=== PATIENT | male | born 1960 | race Caucasian/White ===

== ENCOUNTER 2021-11-16 22:04 | Emergency (ER) | payer OTHER, MEDICAID, SELFPAY ==
[2021-11-16 22:09] VITALS: BP 123/77; PULSE 117; RESP 22; TEMP 36.8; O2SAT 98
--- NOTE | 2021-11-16 22:40 | ED_ITS ---
HPI - Dental/Oral General Chief complaint: Dental/Oral Stated complaint: abcess tooth, anxiety Time Seen by Provider: 11/16/21 22:07 Source: patient Mode of arrival: Ambulatory History of Present Illness HPI Narrative: 61-year-old male daily smoker with history of anxiety and dental issues presents with a chief complaint of a dental fracture of 1 of his right upper molars a few days ago. In the aftermath he develops some pain and mild swelling of the right side of his face. He denies any systemic findings such as fever chills. He has no trouble swallowing. He has widespread poor dentition and multiple dental fractures and is in the process of trying to obtain dental follow-up. Related Data Previous Rx's Medication Instructions Recorded cephalexin 500 mg capsule 500 mg PO BID #20 cap 11/16/21 Allergies Allergy/AdvReac Type Severity Reaction Status Date / Time No Known Drug Allergies Allergy Unverified 07/17/21 13:48 Review of Systems Review of Systems Narrative: GENERAL: Denies chills, fatigue, malaise, fever, sweats. HEENT: See HPI RESPIRATORY: Denies dyspnea, cough, wheezing, hemoptysis, sputum. CARDIOVASCULAR: Denies chest pain, palpitations, orthopnea, edema, GASTROINTESTINAL: Denies nausea, vomiting, abdominal pain, diarrhea, constipation, melena. : Denies dysuria, frequency, incontinence, hematuria, urinary retention. MUSCULOSKELETAL: denies weakness, joint pain, or bony pain SKIN: Denies rash, skin lesions, or other NEUROLOGIC: Denies weakness, headache, numbness, change in speech, confusion, seizures, incoordination. PSYCHIATRIC: No concerning psychosocial issues. 12 point review of systems is negative except for those stated above Patient History Medical History Acne (~1977) Chicken pox (~1965) Cluster headaches (~1989) Tobacco abuse disorder Family History Mother Cancer Father No problems noted. Social History Smoking Status: Current every day smoker alcohol intake: former substance use type: marijuana Smoking Status: Current every day smoker alcohol intake frequency: a few times a month Exam Narrative Exam Narrative: GEN: AOx3 and in mild distress EYES: Pupils are equal, round, and reactive to light and accommodation. Extraoccular muscles are intact bilaterally. There is no subconjunctival hemorrhage or exudate. ENT: Minimal right-sided facial swelling without redness, induration or fluctuance, intraoral exam notes widespread poor dentition with multiple eroded teeth, no obvious intraoral abscess that would respond to I and D CHEST: Lungs are clear to auscultation bilaterally and free of wheezes, rales, or rhonchi. Heart rate is regular rhythm, there are no murmurs, clicks, rubs, or gallops. There is no chest wall tenderness. ABD: Abdomen is soft and nontender. There is no guarding or rebound. Bowel sounds are normal in all 4 quadrants. There is no mass or organomegaly. EXT: Full painless ROM of all extremities with no loss of sensation or strength. SKIN: Warm, pink, and dry. No erythema or rash Initial Vital Signs Initial Vital Signs: Vital Signs Temperature 98.2 F 11/16/21 22:09 Pulse Rate 117 H 11/16/21 22:09 Respiratory Rate 22 11/16/21 22:09 Blood Pressure 123/77 11/16/21 22:09 Pulse Oximetry 98 11/16/21 22:09 Course Orders Ordered: Discontinued Medications Cefazolin Sodium (Cephalexin 250 Mg Prepack) 1 bottle MISC SEEINSTR ONE Stop: 11/16/21 22:50 Last Admin: 11/16/21 22:59 Dose: 2 cap Documented by: STARLA Vital Signs Vital signs: Vital Signs - 8 hr 11/16/21 22:09 Temperature 98.2 F Pulse Rate 117 H Respiratory Rate 22 Blood Pressure 123/77 Pulse Oximetry 98 MDM - Dental/Oral MDM Narrative Medical decision making narrative: Patient has widespread poor dentition with a report of new dental fracture and right-sided facial swelling, the swelling is minimal, there is no difficulty swallowing and no airway compromise. Patient has no signs of sepsis and there is no indication for hospitalization. Return precautions given and questions answered to his apparent satisfaction Discharge Plan Departure Patient Disposition: Home Clinical Impression: Dental abscess, Fracture of tooth Instructions: Tooth Abscess, DI for Dental Pain Activity Restrictions/Additional Instructions: *You have been diagnosed with [dental caries with abscess] *What to do: *Please continue to take your regular medications as directed. [ ] New medication prescriptions sent to your pharmacy: [ ] [ x] New medication written as a paper prescription [ ] No new medications given *Please follow up with your primary care provider in 2-3 days, call for an appointment. Let them know you were seen in the Emergency Department and that we ask that you be seen in follow up. We will electronically transmit a record of today's note if your PCP is in our system *If you do not have a primary care provider please contact the [facility] Resource line at [phone]. They will ask some questions about your medical history and help get you set up with a doctor in the community. *Return to Emergency Department if you should have any new, worsening or concerning symptoms, such as [fever greater than 101 F, shaking chills, worsening pain, persistent vomiting or other bothersome symptoms] Prescriptions: New cephalexin 500 mg capsule 500 mg PO BID Qty: 20 0RF Referrals: Flaco Tse DMD [Physician] - Ish Mohan DO [Primary Care Provider] -
[2021-11-16] MEDS: cephALEXin 250 MG PREPACK 1 BOTTLE MISC (22:59)
== END 2021-11-16 23:06 | disposition home or self-care (01) ==
PROVIDERS: Emergency Provider Emergency Medicine; PCP Family Medicine
DX: S02.5XXA Fracture of tooth (traumatic), initial encounter for closed fracture (principal); X58.XXXA Exposure to other specified factors, initial encounter
CPT/HCPCS: 99281

== ENCOUNTER → 2021-12-31 09:28 | Outpatient (CLI) | payer OTHER, MEDICAID, SELFPAY ==
[2021-12-31 10:49] LABS: Add Manual Diff / Slide Review NO; Basophils Absolute Auto 100 /uL (0-100); Basophils Percent Auto 1.3 % (0-2); Eosinophils Absolute Auto 100 /uL (0-450); Eosinophils Percent Auto 1.1 % (2-4); Hematocrit 43.6 % (41-53); Hemoglobin 15.3 g/dL (13.5-17.5); Lymphocytes Absolute Auto 2000 /uL (1100-4500); Lymphocytes Percent Auto 20.2 % (25-40); Mean Corpuscular HGB Conc 35.2 % (30-36); Mean Corpuscular Hemoglobin 32.1 PG (26-34); Mean Corpuscular Volume 91.3 fL (80-100); Monocytes Absolute Auto 900 /uL (0-900); Monocytes Percent Auto 8.5 % (3-14); Neutrophils Absolute Auto 6900 /uL (1500-7000); Neutrophils Percent Auto 68.9 % (50-75); Platelet Count 308 X10^3/uL (150-400); Red Blood Cell Count 4.78 X10^6/uL (4.5-5.9); Red Cell Distribution Width 14.2 % (11.6-14.8)
[2021-12-31 11:21] LABS: Alanine Aminotransferase 18 IU/L (<50); Albumin 4.9 g/dL (3.5-5.0); Albumin Globulin Ratio 1.8 (1.0-2.8); Alkaline Phosphatase 69 U/L (38-126); Aspartate Aminotransferase 20 IU/L (17-59); BUN Creatinine Ratio 14.5 (6-22); Bilirubin Total 0.9 mg/dL (0.2-1.3); Blood Urea Nitrogen 12 mg/dL (9-20); Calcium 9.7 mg/dL (8.4-10.2); Carbon Dioxide 22 mmol/L (22-32); Chloride 104 mmol/L (98-107); Cholesterol 191 mg/dL (140-199); Estimated Glomerular Filt Rate > 60 mL/min (>60); Globulin 2.7 g/dL (1.7-4.1); Glucose 122 mg/dL (80-110); HDL Cholesterol 52 mg/dL (40-60); HEMOLYSIS < 15 (0-50); LDL Cholesterol Calculated 104 mg/dL (<100); Potassium 4.4 mmol/L (3.4-5.1); Sodium 140 mmol/L (137-145); Total Protein 7.6 g/dL (6.3-8.2); Triglycerides 177 mg/dL (35-150)
[2021-12-31 11:49] LABS: Prostate Specific Antigen Scrn 1.55 ng/mL (0.1-4.0)
== END ==
PROVIDERS: PCP Family Medicine; Referring Provider Family Medicine; Visit Provider Family Medicine
DX: Z12.5 Encounter for screening for malignant neoplasm of prostate (principal); Z13.220 Encounter for screening for lipoid disorders
CPT/HCPCS: 36415; 80053; 80061; 85025; G0103

== ENCOUNTER → 2022-01-02 09:19 | Outpatient (CLI) | payer OTHER, MEDICAID, SELFPAY ==
[2022-01-05 06:48] LABS: Fecal Immunochemical Test Negative (Negative)
== END ==
PROVIDERS: PCP Family Medicine; Referring Provider Family Medicine; Visit Provider Family Medicine
DX: Z12.11 Encounter for screening for malignant neoplasm of colon (principal)
CPT/HCPCS: 82274

== ENCOUNTER 2022-02-07 19:02 | Emergency (ER) | payer OTHER, MEDICAID, SELFPAY ==
[2022-02-07 21:03] VITALS: BP 175/92; PULSE 105; RESP 16; TEMP 37.2; O2SAT 99; BMI 21.2
--- NOTE | 2022-02-07 21:52 | ED_ITS ---
HPI - General Adult General Chief complaint: Dental/Oral Stated complaint: Infection in Gums/Teeth Time Seen by Provider: 02/07/22 21:31 Source: patient Mode of arrival: Ambulatory Limitations: no limitations History of Present Illness HPI narrative: 61-year-old male who has had issues with dental infections in the past is here for evaluation of discomfort in his upper right side of his mouth. He feels that he has another dental infection. He is not seen a dentist since his last infection. No problems breathing. No problems swallowing. Has not tried anything for the symptoms prior to arrival. Related Data Previous Rx's Medication Instructions Recorded penicillin V potassium 500 mg 500 mg PO QID 7 days #28 tabs 02/07/22 tablet Allergies Allergy/AdvReac Type Severity Reaction Status Date / Time No Known Drug Allergies Allergy Unverified 12/31/21 08:42 Review of Systems Constitutional Constitutional: Denies fever(s) ENT Ears, Nose, Mouth, and Throat: Reports system reviewed and no additional complaints, except as documented Integumentary/Breasts Skin/Breast: Reports system reviewed and no additional complaints, except as documented Patient History Medical History Acne (~1977) Chicken pox (~1965) Cluster headaches (~1989) Excessive cerumen in both ear canals Tobacco abuse disorder Family History Mother Cancer Father No problems noted. Social History Smoking Status: Former smoker alcohol intake: former substance use type: marijuana Smoking Status: Former smoker alcohol intake frequency: a few times a month Substance Use Type: marijuana Exam Initial Vital Signs Initial Vital Signs: Vital Signs Temperature 98.9 F 02/07/22 21:03 Pulse Rate 105 H 02/07/22 21:03 Respiratory Rate 16 02/07/22 21:03 Blood Pressure 175/92 H 02/07/22 21:03 Pulse Oximetry 99 02/07/22 21:03 Oxygen Delivery Method 02/07/22 21:03 Const General: cooperative and healthy appearing HENMT Face and sinus: normal facial exam Mouth: oral mucosae normal, lip normal and tongue normal Teeth and gingiva: poor dentition Resp Effort & Inspection: normal respiratory effort Skin General: no rashes or lesions noted Extrem General: normal to inspection and capillary refill normal Course Orders Ordered: Discontinued Medications Penicillin V Potassium (Penicillin Vk 250 Mg Tablet) 500 mg PO NOW ONE Stop: 02/07/22 21:54 Last Admin: 02/07/22 22:15 Dose: 500 mg Documented By: JARET Vital Signs Vital signs: Vital Signs - 8 hr 02/07/22 21:03 Temperature 98.9 F Pulse Rate 105 H Respiratory Rate 16 Blood Pressure 175/92 H Pulse Oximetry 99 Oxygen Delivery Method Room Air Medical Decision Making MDM Narrative Medical decision making narrative: Patient has no drainable abscess noticed here in the ER. He does have poor dentition. Was given a dose of antibiotics here in the ER was sent home with a prescription. Informed he does need to follow-up with dental. Was given return precautions. Expressed understanding and agreement. Discharge Plan Departure Patient Disposition: Home Clinical Impression: Dental abscess Instructions: Tooth Abscess Activity Restrictions/Additional Instructions: Your prescription for antibiotics was electronically transmitted to [facility]. Please pick them up and start taking them as directed. It is important that you follow-up with a dentist. Return to emergency department for any new symptoms. Prescriptions: New penicillin V potassium 500 mg tablet 500 mg PO QID 7 Days Qty: 28 0RF Referrals: Ish Mohan DO [Primary Care Provider] - Visit Report Forms: Patient Portal/API
[2022-02-07] MEDS: PENICILLIN VK 250 MG TABLET 500 MG PO (22:15)
== END 2022-02-07 22:17 | disposition home or self-care (01) ==
PROVIDERS: Emergency Provider Emergency Medicine; PCP Family Medicine
DX: K04.7 Periapical abscess without sinus (principal)
CPT/HCPCS: 99283

== ENCOUNTER 2022-12-30 08:07 | Emergency (ER) | payer OTHER, MEDICAID, SELFPAY ==
[2022-12-30] VITALS (12 sets, daily range): BP systolic 125–143; BP diastolic 75–88; PULSE 99–116; RESP 13–23; TEMP 36.7; O2SAT 96–99
--- NOTE | 2022-12-30 08:32 | ED_ITS ---
HPI - Arrhythmia/Palpitations General Chief Complaint: Arrhythmia/Palpitations Stated Complaint: T-14 lightheaded/heart palp Time Seen by Provider: 12/30/22 08:28 Source: patient Mode of arrival: Ambulatory Limitations: no limitations History of Present Illness HPI narrative: This is a 62-year-old male with history of low iron levels, chronic alcohol and tobacco use. Patient states he has not been eating well for the past 1-2 months, about 2 weeks ago he was feeling very lightheaded sometimes feeling short of breath he would get fatigued when he would walk 2 miles to the store or when he would try to hand saw would. He states that has improved but today he has a lot of palpitations makes him feel very anxious. He denies any chest pain or pressure, he denies any shortness of breath, he denies any syncope. He felt a little lightheaded this morning. He states he is chronic chronic lightheadedness in the past and when he used to smoke marijuana when he was younger he would often pass out. He states he does not do that anymore but does still occasionally use THC. Patient denies any swelling of extremities. No nausea, no vomiting, no diarrhea constipation, he notes his urine has been sticky and a little bit darker. Patient states it is always dark. He denies any fevers or chills, no cold cough or congestive symptoms. States no daily medications he did restart taking his iron supplements he was 1st prescribed those in 2010 and would have his levels checked regularly. Denies any surgerie s. No known drug allergies. He smokes a pack per day, drinks a 6 pack sometimes more of alcohol, he states if he stops drinking he does not withdrawal more get the shakes. He states that he uses THC but quit a couple weeks ago. Denies other recreational drugs. Dr. Mohan is his primary care. Related Data Allergies Allergy/AdvReac Type Severity Reaction Status Date / Time No Known Drug Allergies Allergy Unverified 12/31/21 08:42 Review of Systems Review of Systems ROS Unobtainable: All systems reviewed & are unremarkable except as noted in HPI and below Patient History Medical History Acne (~1977) Chicken pox (~1965) Cluster headaches (~1989) Excessive cerumen in both ear canals Tobacco abuse disorder Family History Mother Cancer Father No problems noted. Social History Smoking Status: Current every day smoker alcohol intake: former substance use type: marijuana Smoking Status: Current every day smoker tobacco type: cigarettes alcohol intake frequency: 0-2 drinks per day Substance Use Type: marijuana Exam Narrative Exam Narrative: GENERAL: Alert and oriented x three, male in mild distress. HEENT: Head normocephalic, atraumatic, EOMI, pupils reactive, face symmetric, moist mucous membranes NECK: Supple, full range of motion CARDIOVASCULAR: Slightly tachycardic at 1:03 a.m. Regular rhythm without murmurs, rubs or gallops. No JVD. No swelling bilateral lower extremities. RESPIRATORY: Breath sounds equal bilaterally, no wheezes rales or rhonchi. No tachypnea or accessory muscle use. Speaks in full sentences. ABDOMEN: Soft, nontender. Normoactive bowel sounds all 4 quadrants. No guarding or rebound, rigidity, no mass : No CVA tenderness EXTREMITIES: Normal range of motion, no clubbing or edema. Neurovascularly intact. NEUROLOGICAL: Cranial nerves II through XII grossly intact. Moving all extremities SKIN: Warm, dry, no petechiae, no rashes or lesions. Initial Vital Signs Initial Vital Signs: Vital Signs Pulse Rate 111 H 12/30/22 08:13 Respiratory Rate 21 12/30/22 08:13 Blood Pressure 135/84 12/30/22 08:13 Pulse Oximetry 98 12/30/22 08:13 Course Orders Ordered: ED Orders 12/30/22 09:56 Urinalysis and Microscopic Stat Discontinued Medications Sodium Chloride (Normal Saline 0.9%) 1,000 mls @ 1,000 mls/hr IV BOLUS ONE Stop: 12/30/22 09:58 Last Infusion: 12/30/22 10:07 Dose: 0 mls/hr Documented By: Admin: 12/30/22 09:04 Dose: 1,000 mls/hr Documented By: AT Vital Signs Vital signs: Vital Signs - 8 hr 12/30/22 08:17 12/30/22 08:13 12/30/22 08:13 Temperature 98.1 F Pulse Rate 116 H 111 H Respiratory Rate 20 21 Blood Pressure 142/75 H 135/84 Pulse Oximetry 98 98 Oxygen Delivery Method Room Air 12/30/22 08:15 12/30/22 08:15 12/30/22 08:30 Temperature Pulse Rate 114 H 110 H Respiratory Rate 19 20 Blood Pressure 142/75 H Pulse Oximetry 98 98 Oxygen Delivery Method 12/30/22 08:31 12/30/22 08:31 12/30/22 08:45 Temperature Pulse Rate 110 H 99 H Respiratory Rate 21 21 Blood Pressure 125/84 Pulse Oximetry 98 97 Oxygen Delivery Method 12/30/22 08:45 12/30/22 09:00 12/30/22 09:00 Temperature Pulse Rate 102 H Respiratory Rate 20 Blood Pressure 131/83 132/88 Pulse Oximetry 96 Oxygen Delivery Method 12/30/22 09:15 12/30/22 09:15 12/30/22 09:30 Temperature Pulse Rate 100 H Respiratory Rate 23 Blood Pressure 136/78 143/87 H Pulse Oximetry 96 Oxygen Delivery Method 12/30/22 09:30 12/30/22 09:44 12/30/22 09:44 Temperature Pulse Rate 100 H 108 H Respiratory Rate 16 20 Blood Pressure 135/86 Pulse Oximetry 98 97 Oxygen Delivery Method 12/30/22 09:45 12/30/22 09:45 12/30/22 10:00 Temperature Pulse Rate 103 H Respiratory Rate 13 Blood Pressure 135/86 141/88 H Pulse Oximetry 99 Oxygen Delivery Method 12/30/22 10:00 Temperature Pulse Rate 103 H Respiratory Rate 19 Blood Pressure Pulse Oximetry 97 Oxygen Delivery Method MDM - Arrhythmia/Palpitations Lab Data 12/30/22 08:37 12/30/22 08:37 Labs: Lab Results 12/30/22 12/30/22 12/30/22 Range/Units 08:37 08:37 08:37 WBC 9.2 (4.5-11.0) X10^3/uL RBC 4.50 (4.5-5.9) X10^6/uL Hgb 14.6 (13.5-17.5) g/dL Hct 42.0 (41-53) % MCV 93.3 (80-100) fL MCH 32.4 (26-34) PG MCHC 34.7 (30-36) % RDW 13.8 (11.6-14.8) % Plt Count 311 (150-400) X10^3/uL Neut % (Auto) 70.3 (50-75) % Lymph % (Auto) 16.9 L (25-40) % Linn % (Auto) 10.4 (3-14) % Eos % (Auto) 1.7 L (2-4) % Baso % (Auto) 0.7 (0-2) % Neut # (Auto) 6400 (9414-3992) /uL Lymph # (Auto) 1600 (0210-5716) /uL Linn # (Auto) 1000 H (0-900) /uL Eos # (Auto) 200 (0-450) /uL Baso # (Auto) 100 (0-100) /uL PT 12.2 (10.1-12.7) SECONDS INR 1.1 (0.9-1.3) APTT 29 (26-36) SECONDS D-Dimer 354 (<500) ng/ml Sodium 138 (137-145) mmol/L Potassium 4.7 (3.4-5.1) mmol/L Chloride 103 (98-107) mmol/L Carbon Dioxide 25 (22-32) mmol/L BUN 19 (9-20) mg/dL Creatinine 0.98 (0.66-1.25) mg/dL Estimated GFR > 60 (>60) mL/min BUN/Creatinine Ratio 19.4 (6-22) Glucose 137 H (80-110) mg/dL Calcium 9.4 (8.4-10.2) mg/dL Total Bilirubin 0.5 (0.2-1.3) mg/dL AST 22 (17-59) IU/L ALT 19 (<50) IU/L Alkaline Phosphatase 66 (38-126) U/L Total Creatine Kinase 36 L (55-170) U/L CK-MB (CK-2) TNP CK-MB (CK-2) Rel Index TNP Troponin I < 0.012 (0.01-0.034) ng/mL NT-Pro-B Natriuret Pep 19 (<125) pg/mL Total Protein 7.0 (6.3-8.2) g/dL Albumin 4.3 (3.5-5.0) g/dL Globulin 2.7 (1.7-4.1) g/dL Albumin/Globulin Ratio 1.6 (1.0-2.8) Lipase 88 (23-300) U/L Urine Color Urine Appearance Urine pH (4.5-8.0) Ur Specific Mulhall (1.000-1.035) Urine Protein (Negative) Urine Glucose (UA) (Negative) g/dL Urine Ketones (NEGATIVE) Urine Occult Blood (Negative) Urine Nitrate (Negative) Urine Bilirubin (NEGATIVE) Urine Urobilinogen (0.2) E.U./dL Ur Leukocyte Esterase (NEGATIVE) Urine RBC (0-5/HPF) Urine WBC (0-5/HPF) Amorphous Sediment Urine Bacteria (None) Ur Culture Indicated? U Opiates 300ng/mL cut (Negative) Ur Oxycodone Screen (Negative) Urine Methadone Screen (Negative) Ur Barbiturates Screen (Negative) U Tricyclic Antidepress (Negative) Ur Phencyclidine Scrn (Negative) Ur Amphetamines Screen (Negative) U Methamphetamines Scrn (Negative) Ur MDMA Scrn (Ecstasy) (Negative) U Benzodiazepines Scrn (Negative) Urine Cocaine Screen (Negative) U Marijuana (THC) Screen (Negative) Ethyl Alcohol < 10 ( - 10) mg/dL 12/30/22 12/30/22 Range/Units 09:45 09:56 WBC (4.5-11.0) X10^3/uL RBC (4.5-5.9) X10^6/uL Hgb (13.5-17.5) g/dL Hct (41-53) % MCV (80-100) fL MCH (26-34) PG MCHC (30-36) % RDW (11.6-14.8) % Plt Count (150-400) X10^3/uL Neut % (Auto) (50-75) % Lymph % (Auto) (25-40) % Linn % (Auto) (3-14) % Eos % (Auto) (2-4) % Baso % (Auto) (0-2) % Neut # (Auto) (3867-3018) /uL Lymph # (Auto) (5118-6195) /uL Linn # (Auto) (0-900) /uL Eos # (Auto) (0-450) /uL Baso # (Auto) (0-100) /uL PT (10.1-12.7) SECONDS INR (0.9-1.3) APTT (26-36) SECONDS D-Dimer (<500) ng/ml Sodium (137-145) mmol/L Potassium (3.4-5.1) mmol/L Chloride (98-107) mmol/L Carbon Dioxide (22-32) mmol/L BUN (9-20) mg/dL Creatinine (0.66-1.25) mg/dL Estimated GFR (>60) mL/min BUN/Creatinine Ratio (6-22) Glucose (80-110) mg/dL Calcium (8.4-10.2) mg/dL Total Bilirubin (0.2-1.3) mg/dL AST (17-59) IU/L ALT (<50) IU/L Alkaline Phosphatase (38-126) U/L Total Creatine Kinase (55-170) U/L CK-MB (CK-2) CK-MB (CK-2) Rel Index Troponin I (0.01-0.034) ng/mL NT-Pro-B Natriuret Pep (<125) pg/mL Total Protein (6.3-8.2) g/dL Albumin (3.5-5.0) g/dL Globulin (1.7-4.1) g/dL Albumin/Globulin Ratio (1.0-2.8) Lipase (23-300) U/L Urine Color Yellow Urine Appearance Sl cloudy Urine pH 7.5 (4.5-8.0) Ur Specific Mulhall 1.010 (1.000-1.035) Urine Protein Negative (Negative) Urine Glucose (UA) Negative (Negative) g/dL Urine Ketones Trace H (NEGATIVE) Urine Occult Blood Negative (Negative) Urine Nitrate Negative (Negative) Urine Bilirubin Negative (NEGATIVE) Urine Urobilinogen 1.0 (0.2) E.U./dL Ur Leukocyte Esterase Negative (NEGATIVE) Urine RBC None seen (0-5/HPF) Urine WBC None seen (0-5/HPF) Amorphous Sediment 1+ Urine Bacteria None seen (None) Ur Culture Indicated? Cult not indicated U Opiates 300ng/mL cut Negative (Negative) Ur Oxycodone Screen Negative (Negative) Urine Methadone Screen Negative (Negative) Ur Barbiturates Screen Negative (Negative) U Tricyclic Antidepress Negative (Negative) Ur Phencyclidine Scrn Negative (Negative) Ur Amphetamines Screen Negative (Negative) U Methamphetamines Scrn Negative (Negative) Ur MDMA Scrn (Ecstasy) Negative (Negative) U Benzodiazepines Scrn Negative (Negative) Urine Cocaine Screen Negative (Negative) U Marijuana (THC) Screen Positive H (Negative) Ethyl Alcohol ( - 10) mg/dL Urine Dip Bedside Urine Glucose Negative Bedside Urine Bilirubin - Negative Bedside Urine Ketone - Negative Urine Specific Mulhall 1.010 Bedside Urine Occult Blood - Negative Bedside Urine pH 8.0 Bedside Urine Protein - Negative Bedside Urine Urobilinogen - Negative Bedside Urine Nitrite - Negative Bedside Urine Leukocytes - Negative Esterase Imaging Data Chest x-ray: Radiologist's Impresson: Close Chest X-Ray (Signed) Ethan Mcduffie - 12/30/22 Launch?[address] [address] XRay Report Signed Patient: Fei Roman MR#: [id number] : 1960 Acct:[id number] Age/Sex: 62 / M Date of Service: 12/30/22 Loc: ED Accession Number: [id number] ?? Procedure: XR chest 1V Ordering Provider: Angeli Amaya D.O. PROCEDURE:? XR CHEST 1V ? INDICATIONS:? palpitations ? TECHNIQUE:? One view of the chest was acquired.? ? COMPARISON:? None. ? FINDINGS:? ? Surgical changes and devices:? None.? ? Lungs and pleura:? Lungs are clear.? No pleural effusions or pneumothorax.? ? Mediastinum:? Mediastinal contours appear normal.? Heart size is normal.? ? Bones and chest wall:? No suspicious bony lesions.? Overlying soft tissues appear unremarkable.? ? IMPRESSION:? No evidence acute pulmonary process. ? ? ? Dictated by: Ethan Mcduffie M.D. on 12/30/2022 at 9:42 ? ? Approved by: Ethan Mcduffie M.D. on 12/30/2022 at 9:43?? ECG Data Attestation: I personally reviewed and interpreted this ECG as follows: Prior ECG tracings: not available for review Interpretation: Sinus tachycardia rate of 103 MT 124 QRS 88 QTC of 445. No acute ST elevation or depression. No prior for comparison. MDM Narrative Medical decision making narrative: This is a 62-year-old male who comes to the emergency department with complaint of palpitations. He notes some shortness of breath and discomfort 2 weeks ago as well as lightheadedness that had improved. He is slightly tachycardic today no chest pain, no shortness of breath no swelling, he does use tobacco he does drink alcohol regularly he denies withdrawal symptoms. Patient has required iron supplements in the past. He is overall well-appearing. Blood pressure slightly elevated on arrival, afebrile. Labs, including CBC, CMP, troponin and BNP as well as dimer is patient's have some tachycardia with tobacco abuse does show EKG shows a sinus tachycardia, S1 but no acute 3 or T3 no other acute ST changes appreciated. No does not have priors for comparison. Chest x-ray shows no acute change. Patient's tachycardia resolved with fluids he is feeling much better. He is in the 80s to 90s on monitor with no other changes he does have little bit of ketones in his urine but no other significant changes to CBC, CMP, troponin, BNP are dimer. 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 Patient is feeling much improved. Discussed follow-up and return precautions. All questions answered. Patient does not endorse any psychiatric issues at this time. Discharge Plan Departure Patient Disposition: Home Clinical Impression: Palpitations Instructions: DI for Palpitations Activity Restrictions/Additional Instructions: Please follow-up with your physician but your workup today is overall reassuring. You are slightly dehydrated but not affecting your renal function. Please return for new or worsening symptoms, persistent lightheadedness, passing out, chest pain or shortness breath, persistent vomiting, new swelling in extremities or other new or concerning changes. Referrals: Dereck Mohan DO [Primary Care Provider] - Stand Alone Forms: Patient Portal/API
--- NOTE | 2022-12-30 08:59 | DI.RAD.S_ITS ---
PROCEDURE: XR CHEST 1V INDICATIONS: palpitations TECHNIQUE: One view of the chest was acquired. COMPARISON: None. FINDINGS: Surgical changes and devices: None. Lungs and pleura: Lungs are clear. No pleural effusions or pneumothorax. Mediastinum: Mediastinal contours appear normal. Heart size is normal. Bones and chest wall: No suspicious bony lesions. Overlying soft tissues appear unremarkable. IMPRESSION: No evidence acute pulmonary process. Dictated by: Ethan Mcduffie M.D. on 12/30/2022 at 9:42 Approved by: Ethan Mcduffie M.D. on 12/30/2022 at 9:43
[2022-12-30] MEDS: SODIUM CHLORIDE 0.9% 1,000 ML 1000 ML IV (09:04)
[2022-12-30 09:05] LABS: Add Manual Diff / Slide Review NO; Basophils Absolute Auto 100 /uL (0-100); Basophils Percent Auto 0.7 % (0-2); Eosinophils Absolute Auto 200 /uL (0-450); Eosinophils Percent Auto 1.7 % (2-4); Hemoglobin 14.6 g/dL (13.5-17.5); Lymphocytes Absolute Auto 1600 /uL (1100-4500); Lymphocytes Percent Auto 16.9 % (25-40); Mean Corpuscular HGB Conc 34.7 % (30-36); Mean Corpuscular Hemoglobin 32.4 PG (26-34); Mean Corpuscular Volume 93.3 fL (80-100); Monocytes Absolute Auto 1000 /uL (0-900); Monocytes Percent Auto 10.4 % (3-14); Neutrophils Absolute Auto 6400 /uL (1500-7000); Neutrophils Percent Auto 70.3 % (50-75); Platelet Count 311 X10^3/uL (150-400); Red Cell Distribution Width 13.8 % (11.6-14.8); White Blood Cell Count 9.2 X10^3/uL (4.5-11.0)
[2022-12-30 09:07] LABS: INR 1.1 (0.9-1.3); Prothrombin Time 12.2 SECONDS (10.1-12.7)
[2022-12-30 09:08] LABS: D Dimer 354 ng/ml (<500)
[2022-12-30 09:09] LABS: PTT Partial Thromboplastin Tim 29 SECONDS (26-36)
[2022-12-30 09:13] LABS: Alanine Aminotransferase 19 IU/L (<50); Albumin 4.3 g/dL (3.5-5.0); Albumin Globulin Ratio 1.6 (1.0-2.8); Alkaline Phosphatase 66 U/L (38-126); Aspartate Aminotransferase 22 IU/L (17-59); BUN Creatinine Ratio 19.4 (6-22); Bilirubin Total 0.5 mg/dL (0.2-1.3); Blood Urea Nitrogen 19 mg/dL (9-20); Calcium 9.4 mg/dL (8.4-10.2); Carbon Dioxide 25 mmol/L (22-32); Chloride 103 mmol/L (98-107); Creatine Kinase 36 U/L (55-170); Estimated Glomerular Filt Rate > 60 mL/min (>60); Ethanol (ETOH) < 10 mg/dL; Globulin 2.7 g/dL (1.7-4.1); Glucose 137 mg/dL (80-110); HEMOLYSIS < 15 (0-50); Lipase 88 U/L (23-300); Potassium 4.7 mmol/L (3.4-5.1); Sodium 138 mmol/L (137-145)
[2022-12-30 09:23] LABS: NT-proBNP (BNP-Adult 18+) 19 pg/mL (<125); Troponin I < 0.012 ng/mL (0.01-0.034)
[2022-12-30 09:58] LABS: Appearance Urine UA SL CLOUDY; Bilirubin Urine UA NEGATIVE (NEGATIVE); Color Urine UA YELLOW; Glucose Urine UA NEGATIVE (Negative); Ketones Urine UA TRACE (NEGATIVE); Leukocyte Esterase Urine UA NEGATIVE (NEGATIVE); Nitrite Urine UA NEGATIVE (Negative); Occult Blood Urine UA NEGATIVE (Negative); Protein Urine UA NEGATIVE (Negative); pH Urine UA 7.5 (4.5-8.0)
[2022-12-30 09:58] LABS: UR Morphine/Opiate cutoff 300 Negative (Negative); Ur Creatinine Normal (Normal); Ur Specific Gravity Normal (Normal); Urine Amphetamines Negative (Negative); Urine Barbiturates Negative (Negative); Urine Benzodiazepines Negative (Negative); Urine Cocaine Negative (Negative); Urine MDMA Negative (Negative); Urine Methadone Negative (Negative); Urine Methamphetamines Negative (Negative); Urine Oxycodone Negative (Negative); Urine Phencyclidine Negative (Negative); Urine Tetrahydrocannabinol Positive (Negative); Urine Tricyclic Antidepressant Negative (Negative); Urine pH Normal (Normal)
[2022-12-30 10:02] LABS: Amorphous Sediment Urine 1+; Bacteria Urine None Seen; Culture Indicated Urine Cult Not Indicated; RBC Urine None Seen (0-5/HPF); WBC Urine None Seen (0-5/HPF)
== END 2022-12-30 10:20 | disposition home or self-care (01) ==
PROVIDERS: Emergency Provider Emergency Medicine; PCP Family Medicine
DX: R00.2 Palpitations (principal); R07.9 Chest pain, unspecified
CPT/HCPCS: 36415; 71045; 80053; 80305; 80320; 81001; 81003; 82550; 83690; 83880; 84484; 85025; 85379; 85610; 85730; 93005; 93010; 96360; 99284

== ENCOUNTER 2023-12-26 15:29 | Emergency (ER) | payer OTHER, MEDICAID, SELFPAY ==
[2023-12-26 15:41] VITALS: BP 103/71; PULSE 107; RESP 16; TEMP 36.9; O2SAT 99; BMI 21.2
--- NOTE | 2023-12-26 16:43 | ED_ITS ---
HPI - Dental/Oral <SARAN Boss - Last Filed: 12/26/23 16:49> General Chief complaint: Dental/Oral Stated complaint: infection jaw Time Seen by Provider: 12/26/23 16:10 Source: patient Mode of arrival: Ambulatory History of Present Illness HPI Narrative: 63-year-old male, daily smoker, presents to the emergency department with right lower jaw swelling and dental pain. Patient reports that he has had a un derlying tooth infection for the last year but woke up this morning with right lower jaw swelling and increased pain. Patient denies any trauma to that jaw that would contribute to the swelling. Related Data Previous Rx's Medication Instructions Recorded sumatriptan succinate 100 mg tablet See Rx Instructions PO .COMPLEX #7 12/17/23 tabs amoxicillin 875 mg-potassium 1 tab PO BID Dental abscess 10 12/26/23 clavulanate 125 mg tablet days #20 tabs Allergies Allergy/AdvReac Type Severity Reaction Status Date / Time No Known Drug Allergies Allergy Verified 12/16/23 13:53 Review of Systems <SARAN Boss - Last Filed: 12/26/23 16:49> Review of Systems Narrative: Narrative: See HPI. GENERAL: Denies chills, fatigue, fever, sweats. HEENT: Denies sinus pain, ear pain, sore throat, difficulty swallowing, dizziness. Endorses right lower jaw pain and swelling. RESPIRATORY: Denies dyspnea, cough, wheezing, sputum. CARDIOVASCULAR: Denies chest pain, palpitations, edema. GASTROINTESTINAL: Denies nausea, vomiting, abdominal pain, diarrhea, constipation. : Denies dysuria, frequency, incontinence, hematuria, urinary retention, flank pain. MSK: Denies weakness, joint pain, or bony pain. SKIN: Denies rash, skin lesions, or pruritis. NEUROLOGIC: Denies weakness, dizziness, headache, numbness, confusion. PSYCHIATRIC: No concerning psychosocial issues. Patient History <SARAN Boss - Last Filed: 12/26/23 16:49> Medical History Alcohol abuse Insufficient intake of food and water due to self neglect Excessive cerumen in both ear canals Acne (~1977) Chicken pox (~1965) Tobacco abuse disorder Cluster headaches (~1989) Family History Mother Cancer Father No problems noted. Social History Smoking Status: Current every day smoker alcohol intake: former substance use type: marijuana Smoking Status: Current every day smoker tobacco type: cigarettes alcohol intake frequency: 0-2 drinks per day Substance Use Type: marijuana Exam <SARAN Boss - Last Filed: 12/26/23 16:49> Narrative Exam Narrative: Exam Narrative: GENERAL: This is a well-nourished, well-developed patient, in no acute distress. HEAD: Atraumatic. Normocephalic. EYES: Pupils equal round and reactive. Extraocular motions intact. No scleral icterus, injection or drainage. ENT: Nose without bleeding, purulent drainage. Throat without erythema, tonsillar hypertrophy or exudate. Poor dentition throughout. Broken teeth on right lower jaw #28-30. Uvula midline. Airway patent. Bilateral ear canals impacted with cerumen. No sinus tenderness. NECK: Trachea midline. No JVD or lymphadenopathy. Nontender. CARDIOVASCULAR: Regular rate and rhythm without murmurs, peripheral pulses intact, cap refill <2 sec. RESPIRATORY: Breath sounds equal and clear bilaterally. No wheezes, rales, or rhonchi. No cough. No increased respiratory effort. No accessory muscle use. MSK: Moves all extremities. Normal range of motion, no clubbing or edema. Neurovascularly intact. NEURO: A&O x 3. SKIN: Warm, dry, no rashes or lesions noted. Initial Vital Signs Initial Vital Signs: Vital Signs Temperature 98.4 F 12/26/23 15:41 Pulse Rate 107 H 12/26/23 15:41 Respiratory Rate 16 12/26/23 15:41 Blood Pressure 103/71 12/26/23 15:41 Pulse Oximetry 99 12/26/23 15:41 Oxygen Delivery Method Room Air 12/26/23 15:41 Reviewed <Kel Scott MD - Last Filed: 12/27/23 18:51> Initial Vital Signs Initial Vital Signs: Vital Signs Temperature 98.4 F 12/26/23 15:41 Pulse Rate 107 H 12/26/23 15:41 Respiratory Rate 16 12/26/23 15:41 Blood Pressure 103/71 12/26/23 15:41 Pulse Oximetry 99 12/26/23 15:41 Oxygen Delivery Method Room Air 12/26/23 15:41 Course <SARAN Boss - Last Filed: 12/26/23 16:49> Vital Signs Vital signs: Vital Signs - 8 hr 12/26/23 15:41 Temperature 98.4 F Pulse Rate 107 H Respiratory Rate 16 Blood Pressure 103/71 Pulse Oximetry 99 Oxygen Delivery Method Room Air <Kel Scott MD - Last Filed: 12/27/23 18:51> Vital Signs Vital signs: Vital Signs - 8 hr 12/26/23 15:41 Temperature 98.4 F Pulse Rate 107 H Respiratory Rate 16 Blood Pressure 103/71 Pulse Oximetry 99 Oxygen Delivery Method Room Air MDM - Dental/Oral <SARAN Boss - Last Filed: 12/26/23 16:49> Differential Diagnosis Differential diagnosis: Likely toothache, dental abscess and fracture of tooth MDM Narrative Medical decision making narrative: 63-year-old male with dental pain. Assessment was consistent with a dental abscess of right lower jaw adjacent from teeth #28 -30. Will treat with Augmentin for 10 days. Instructed patient to make sure he is drinking plenty of water and to gargle with warm salt water 2 to 3 times a day. Recommended a family doctor nurse visit for ear lavage due to bilateral cerumen impaction. Strongly recommended patient follow up with a dentist reagan to ensure symptoms do not worsen. Patient verbalized understanding and was agreeable with course of action. Discharge Plan Departure Patient Disposition: Home Clinical Impression: Dental abscess Instructions: Tooth Abscess, DI for Dental Pain Activity Restrictions/Additional Instructions: *You have been diagnosed with a dental abscess. We will treat this with antibiotics for 10 days, please make sure you take all of the antibiotics as prescribed. Additionally, please make sure that you are drinking plenty of water, at least 60 oz of water per day, and rinse/gargle with warm salt water 2 to 3 times a day to help clean out your mouth. Please check with your family doctor for possible nurse visit for earwax removal of both ears. Please seek dental attention as soon as possible. For any worsening symptoms, please feel free to return to the emergency department. *What to do: *Please continue to take your regular medications as directed. [x ] New medication prescriptions sent to your pharmacy: [[facility]] [ ] New medication written as a paper prescription [ ] No new medications given *Please follow up with your primary care provider in 2-3 days, call for an appo intment. Let them know you were seen in the Emergency Department and that we ask that you be seen in follow up. We will electronically transmit a record of today's note if your PCP is in our system *If you do not have a primary care provider please contact the [facility] Resource line at [phone]. They will ask some questions about your medical history and help get you set up with a doctor in the community. ? Return to ER if you should have any new, worsening or concerning symptoms, such as worsening pain, severe headache, confusion, chest pain, difficulty breathing, fever greater than 101 F, shaking chills, persistent vomiting to the point that you cannot drink fluids, or other new or worsening symptoms. Prescriptions: New amoxicillin-pot clavulanate 875-125 mg tablet 1 tab PO BID 10 Days Qty: 20 0RF No Action sumatriptan succinate 100 mg tablet See Rx Instructions PO .COMPLEX Qty: 7 0RF Rx Instructions: take 1 tab at onset of headache; if no relief, may repeat 1 tab after at least 2 hrs; max = 2 tabs/24 hrs PO Referrals: Dereck Mohan, [Primary Care Provider] - Stand Alone Forms: Patient Portal/API ED Sign-out <Kel Scott MD - Last Filed: 12/27/23 18:51> Cosign ED Attending Dilciaature Attestation: I was immediately available in the department for consultation. I reviewed the documentation. Supervised by Kel Scott MD.
[2023-12-26 16:53] VITALS: BP 105/66; PULSE 97; RESP 14; O2SAT 97
== END 2023-12-26 16:59 | disposition home or self-care (01) ==
PROVIDERS: Emergency Provider Registered Nurse; PCP Family Medicine
DX: K04.7 Periapical abscess without sinus (principal)
CPT/HCPCS: 99281; 99283

== ENCOUNTER 2024-02-05 10:47 | Emergency (ER) | payer OTHER, MEDICAID, SELFPAY ==
[2024-02-05 10:48] VITALS: BP 144/75; PULSE 128; RESP 14; TEMP 36.5; O2SAT 96; BMI 21.2
--- NOTE | 2024-02-05 10:54 | DI.RAD.S_ITS ---
PROCEDURE: XR ELBOW RT MIN 3V INDICATIONS: elbow injury TECHNIQUE: 3 views of the elbow were acquired. COMPARISON: None. FINDINGS: Bones: Mildly displaced, comminuted olecranon fracture. Fracture lucency extends into the joint space. No gross dislocation at the joint space. Soft tissues: No elbow joint effusion. No suspicious soft tissue calcifications. IMPRESSION: Mildly displaced, comminuted, intra-articular olecranon fracture. Dictated by: Tlaia Gruber M.D. on 02/05/2024 at 11:32 Approved by: Talia Gruber M.D. on 02/05/2024 at 11:32
--- NOTE | 2024-02-05 11:49 | ED_ITS ---
HPI - Extremity Injury (Upper) <Nawaf Hills PA-C - Last Filed: 02/05/24 14:05> General Chief Complaint: Extremity Injury, Upper Stated Complaint: Broken R Arm Time Seen by Provider: 02/05/24 11:49 Source: patient Mode of arrival: Ambulatory History of Present Illness HPI narrative: This is a 63-year-old male presents emergency department due to right elbow pain. Two days ago he fell backwards out of his camper landing on his right elbow. He was not on blood thinners. He was not hit head or lose conscious. He denies any pain to the remainder of his body. Denies any numbness. Has not eaten today. Related Data Previous Rx's Medication Instructions Recorded sumatriptan succinate 100 mg tablet See Rx Instructions PO .COMPLEX #7 12/17/23 tabs Allergies Allergy/AdvReac Type Severity Reaction Status Date / Time No Known Drug Allergies Allergy Verified 02/05/24 10:50 Review of Systems <Nawaf Hills PA-C - Last Filed: 02/05/24 14:05> Review of Systems Narrative: GENERAL: Denies chills, fatigue, malaise, fever, sweats. HEENT: Denies sinus pain, ear pain, sore throat, difficulty swallowing, dizziness. RESPIRATORY: Denies dyspnea, cough, wheezing, hemoptysis, sputum. CARDIOVASCULAR: Denies chest pain, palpitations, orthopnea, edema, GASTROINTESTINAL: Denies nausea, vomiting, abdominal pain, diarrhea, constipation, melena. : Denies dysuria, frequency, incontinence, hematuria, urinary retention. MUSCULOSKELETAL: Reports right elbow pain, otherwise denies weakness, joint pain, or bony pain SKIN: Denies rash, skin lesions, or other NEUROLOGIC: Denies weakness, headache, numbness, change in speech, confusion, seizures, incoordination. PSYCHIATRIC: No concerning psychosocial issues. 12 point review of systems is negative except for those stated above Patient History <PARDEEP Hoffman Last Filed: 02/05/24 14:05> Medical History Alcohol abuse Insufficient intake of food and water due to self neglect Excessive cerumen in both ear canals Acne (~1977) Chicken pox (~1965) Tobacco abuse disorder Cluster headaches (~1989) Family History Mother Cancer Father No problems noted. Social History Smoking Status: Current every day smoker alcohol intake: former substance use type: marijuana Smoking Status: Current every day smoker tobacco type: cigarettes alcohol intake frequency: a few times a week Substance Use Type: does not use Exam <Nawaf Hills PA-C - Last Filed: 02/05/24 14:05> Narrative Exam Narrative: GENERAL: Well-developed patient, in mild distress. HEAD: Atraumatic. Normocephalic. EYES: Pupils equal round and reactive. Extraocular motions intact. No scleral icterus. No injection or drainage. ENT: Nose without bleeding, purulent drainage. Throat without erythema, tonsillar hypertrophy or exudate. Airway patent. NECK: Trachea midline. Non tender EXTREMITIES: Generalized edema and tenderness to palpation to the right elbow. Neurovascularly intact throughout. 2+ radial pulse. No pain to the right shoulder or right wrist. NEURO: AOx3. SKIN: No rash or erythema of visible areas Initial Vital Signs Initial Vital Signs: Vital Signs Temperature 97.7 F 02/05/24 10:48 Pulse Rate 128 H 02/05/24 10:48 Respiratory Rate 14 02/05/24 10:48 Blood Pressure 144/75 H 02/05/24 10:48 Pulse Oximetry 96 02/05/24 10:48 Oxygen Delivery Method Room Air 02/05/24 10:48 <Angeli Amaya DO - Last Filed: 02/05/24 18:55> Initial Vital Signs Initial Vital Signs: Vital Signs Temperature 97.7 F 02/05/24 10:48 Pulse Rate 128 H 02/05/24 10:48 Respiratory Rate 14 02/05/24 10:48 Blood Pressure 144/75 H 02/05/24 10:48 Pulse Oximetry 96 02/05/24 10:48 Oxygen Delivery Method Room Air 02/05/24 10:48 Procedures <PARDEEP Hoffman Last Filed: 02/05/24 14:05> Orthopedic Splinting/Casting Injury #1: Time of procedure: 14:00 Side: right Upper Extremity Injury Location: elbow Upper Extremity Immobilizer: posterior splint Post splinting neuro exam: intact Post splinting vascular exam: intact Placed by: Nursing Course <PARDEEP Hoffman Last Filed: 02/05/24 14:05> Orders Ordered: ED Orders 02/05/24 10:54 XR elbow RT min 3V Stat Vital Signs Vital signs: Vital Signs - 8 hr 02/05/24 15:05 Pulse Rate 116 H Blood Pressure 115/79 Pulse Oximetry 98 Oxygen Delivery Method Room Air <Angeli Amaya DO - Last Filed: 02/05/24 18:55> Orders Ordered: ED Orders 02/05/24 10:54 XR elbow RT min 3V Stat Vital Signs Vital signs: Vital Signs - 8 hr 02/05/24 15:05 Pulse Rate 116 H Blood Pressure 115/79 Pulse Oximetry 98 Oxygen Delivery Method Room Air MDM - Extremity Injury (Upper) <PARDEEP Hoffman Last Filed: 02/05/24 14:05> Imaging Data Extremity x-ray #1: Radiologist's Impression: [address] [address] XRay Report Signed Patient: Fei Roman MR#: [id number] : 1960 Acct:[id number] Age/Sex: 63 / M Date of Service: 02/05/24 Loc: ED Accession Number: [id number] Procedure: XR elbow RT min 3V Ordering Provider: Angeli Amaya D.O. PROCEDURE: XR ELBOW RT MIN 3V INDICATIONS: elbow injury TECHNIQUE: 3 views of the elbow were acquired. COMPARISON: None. FINDINGS: Bones: Mildly displaced, comminuted olecranon fracture. Fracture lucency extends into the joint space. No gross dislocation at the joint space. Soft tissues: No elbow joint effusion. No suspicious soft tissue calcifications. IMPRESSION: Mildly displaced, comminuted, intra-articular olecranon fracture. Dictated by: Talia Gruber M.D. on 02/05/2024 at 11:32 Approved by: Talia Gruber M.D. on 02/05/2024 at 11:32 [facility] Narrative Medical decision making narrative: ED course: This is a 63-year-old male presents emergency department after a mechanical ground level fall sustaining a right elbow injury. X-ray showed a fracture, mildly displaced comminuted intra-articular olecranon fracture. This was discussed with the on-call orthopedist, Dr. Barrera, who recommended a posterior long-arm splint and follow up in his clinic. This was placed without complications. Patient declined narcotics for pain management. Neurovascularly intact throughout. CC: Right elbow pain Complicating co-morbidities: History of alcohol and tobacco use Data collected from: Previous notes Medical records reviewed: Patient was seen a month and a half ago due to a dental abscess. History of alcohol abuse and tobacco use. Differential considered, but not limited to: Fracture, neurovascular injury, sprain Exam documented above, pertinent findings include: Neurovascularly intact throughout Lab Test results independently reviewed as above. Pertinent findings: None obtained Imaging studies independently reviewed: X-ray shows fracture of the olecranon Scores Used: None MIPS Elements: None Consultations: None Treatments: Posterior long-arm splint Re-evaluations: None Discussion: Discussed plan with the patient was comfortable with the plan Diagnosis: Olecranon fracture Disposition: see below, along with detailed discharge instructions that have been reviewed with patient as well as indications for ED re-evaluation and additional outpatient follow up Discharge Plan Departure Patient Disposition: Home Clinical Impression: Closed olecranon fracture Instructions: DI for Elbow Fracture Activity Restrictions/Additional Instructions: Thank you for coming to the [facility] Emergency Department today. As we discussed you have a fracture your elbow. This needs follow up with the orthopedist, Dr. Barrera. You may use Tylenol as needed for pain control. Please call his office on Wednesday to arrange for an appointment. Please return to the emergency department if you develop any numbness in your hands, severe pain, or any other concerning signs or symptoms. I hope you feel better soon. Please follow up with your primary care provider within a week if your symptoms continue. If you do not have a primary care provider please contact the [facility] Resource line at [phone]. They will ask some questions about your medical history and help you get set up with a provider in the community. Prescriptions: No Action sumatriptan succinate 100 mg tablet See Rx Instructions PO .COMPLEX Qty: 7 0RF Rx Instructions: take 1 tab at onset of headache; if no relief, may repeat 1 tab after at least 2 hrs; max = 2 tabs/24 hrs PO Referrals: Dominic Barrera MD [Physician] - (f/u olecranon fracture, thank you! ) Dereck Mohan DO [Primary Care Provider] - Stand Alone Forms: Patient Portal/API ED Sign-out <Angeli Amaya DO - Last Filed: 02/05/24 18:55> Cosign ED Attending Merrill Attestation: I was immediately available in the department for consultation.
[2024-02-05 15:05] VITALS: BP 115/79; PULSE 116; O2SAT 98
== END 2024-02-05 15:05 | disposition home or self-care (01) ==
PROVIDERS: Emergency Provider Physician Assistant Medical; PCP Family Medicine
DX: S52.031A Displaced fracture of olecranon process with intraarticular extension of right ulna, initial encounter for closed fracture (principal); W18.30XA Fall on same level, unspecified, initial encounter
CPT/HCPCS: 29105; 73080; 99283

== ENCOUNTER 2024-02-08 06:23 | Day surgery (SDC) | payer OTHER, MEDICAID, SELFPAY ==
[2024-02-08] VITALS (7 sets, daily range): BP systolic 100–147; BP diastolic 73–95; PULSE 92–110; RESP 12–20; TEMP 36.6–36.8; O2SAT 96–99; BMI 21.2
--- NOTE | 2024-02-08 | DI.RAD.S_ITS ---
PROCEDURE: XR ELBOW RT 2V INDICATIONS: ORIF RT ELBOW TECHNIQUE: 3 operative C-arm views of the elbow were acquired. [facility], CR, XR ELBOW RT MIN 3V, 02/05/2024, 11:07. non fractureOMPARISON: FINDINGS: Operative imaging utilized during ORIF of an olecranon fracture with no radiographic evidence of complications. Near overall anatomic alignment. IMPRESSION: Operative imaging utilized during ORIF of an olecranon fracture. Dictated by: Ethan Mcduffie M.D. on 02/08/2024 at 11:34 Approved by: Ethan Mcduffie M.D. on 02/08/2024 at 11:36
[2024-02-08] MEDS: ACETAMINOPHEN 325 MG TABLET 975 MG PO (07:18)
[2024-02-08] MEDS: LACTATED RINGERS 1,000 ML 42 ML IV ×2 (07:25→08:35)
--- NOTE | 2024-02-08 07:33 | PM.HP.1 ---
History of Present Illness History of Present Illness Date Patient Seen: 02/08/24 Time Patient Seen: 07:33 Chief complaint: ORIF R Olecranon fx Narrative: This 63-year-old male patient sustained a ground level fall while intoxicated 02/05/2024. He sustained a olecranon fracture and was seen in the emergency department here for evaluation. He is a smoker and recovering alcoholic who has been treated recently for a dental abscess in his pending tooth removal for that dental abscess. He reports pain in the right arm which has been present since the time of injury. It is worsened by movement and partially alleviated by rest. He reports no other injuries. [facility] Medical History Alcohol abuse Insufficient intake of food and water due to self neglect Excessive cerumen in both ear canals Acne (~1977) Chicken pox (~1965) Tobacco abuse disorder Cluster headaches (~1989) Family History Mother Cancer Father No problems noted. Social History household members: none Smoking Status: Current every day smoker alcohol intake: current substance use type: marijuana Meds Home Medications and Allergies Home Medications Medication Instructions Recorded Confirmed Type sumatriptan succinate 100 mg tablet See Rx Instructions PO .COMPLEX #7 12/17/23 02/08/24 Rx tabs Allergies Allergy/AdvReac Type Severity Reaction Status Date / Time No Known Drug Allergies Allergy Verified 02/08/24 07:09 Review of Systems Review of Systems ROS: Yes All systems reviewed with the patient and are negative except as otherwise documented Exam Vital Signs (past 8 hours): - 02/08/24 07:26 Temperature 97.9 F Pulse Rate 110 H Respiratory Rate 20 Blood Pressure 120/95 H Pulse Oximetry 98 Oxygen Delivery Method Room Air Oxygen Delivery Method Room Air Const General: cooperative Orientation: alert and awake HENMA Head: normal to inspection Ears: hearing grossly normal bilaterally Eyes General: appearance normal, both eyes and all related structures Neck Neck: normal visual inspection Resp Effort & Inspection: normal respiratory effort and able to speak in complete sentences Cardio Pulses: other (peripheral pulses present) Skin Lesions: no lesions Rashes: no rashes Neuro General: patient alert, patient awake and moves all extremities Psych Appearance: grossly normal Objective Imaging Right elbow x-ray: My impression: Displaced right olecranon fracture Assessment & Plan Assessment and plan (1) Closed olecranon fracture: Status: Acute Plan Planned for open reduction internal fixation of right olecranon fracture today. We will plan to discharge patient home postoperatively. As he lives alone a taxi will be utilized for transportation purposes postoperatively. I stressed the importance of smoking cessation with him in detail today for the potential impact on bony healing. He understands this risk and reports he will be able to quit smoking. I asked if it would be helpful to send a smoking cessation aid to a pharmacy such as nicotine patches and he declined these, saying he understood the importance and would be able to quit without smoking cessation aids. I also discussed the impact of high alcohol intake during his recovery with particular emphasis on fall avoidance. Finally I discussed his dental abscess with him which he reports is still present. Will plan to prescribe prophylactic antibiotics for that dental abscess in line with what he has received previously to prophylax against infectious seeding of the operative site. I also recommend expedient removal of the involved teeth to allow for resolution of that abscess as soon as possible. I discussed the risks of nonunion, delayed wound healing, need for further surgery with him in detail. Additional risks include damage to surrounding structures, bleeding, and loss of elbow range of motion. We will plan to move forward with surgery today. The operative site has been marked. Informed consent has been signed. Time-Based Coding :: [TOTAL MINUTES] spent with patient and on the chart (including review of chart, obtaining history, exam, reviewing outside data, placing orders, documenting exam and treatment plan, and counseling patient) on [DATE].
--- NOTE | 2024-02-08 07:38 | SUR.PREOP ---
Dr Humphries notified that patient lives alone and has no local family or friends and plans to take a taxi home.
--- NOTE | 2024-02-08 07:57 | SUR.PREOP ---
Time out 0746 Block start time 0747 . Monitoring initiated and maintained throughout procedure. Oxygen and medications given by anesthesiologist instructions. Patient remained stable throughout procedure, no adverse reactions noted. Block end time 0753.
[2024-02-08] MEDS: CEFAZOLIN 2 GM/100 ML PREMIX 100 ML IV (08:15)
--- NOTE | 2024-02-08 08:36 | SUR.OPER ---
Lateral on padded OR bed with coleman bag positioner, head on pillow, gel axillary roll in place, bottom leg bent with gel pad under knee to foot, upper leg straight and supported with pillows. Operative arm secured in shoulder positioning suspension device. non-operative arm secured IN COLEMAN BAG WITH PADDING. Safety belt at hip, tape over blanket securing lower legs.
[2024-02-08] MEDS: AMPICILLIN/SULBACTAM 3 GM 3 GM in SODIUM CHLORIDE 0.9% 100 ML IV (08:48)
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
[2024-02-08] MEDS: ONDANSETRON 4 MG/2 ML INJ IV (09:57)
--- NOTE | 2024-02-08 11:17 | SUR.PHASEII ---
Pt ready for discharge. Waiting for taxi. Up and steady on feet. Able to dress self and put on own sling.
--- NOTE | 2024-02-08 11:43 | SUR.PHASEII ---
Pt discharged to home after going to [facility] and filling his prescription. Pt picked up by [employer] taxi with transporter who knew patient by name. pt able to verbalize all discharge teaching. Alert. Oriented. Steady on feet.
== END 2024-02-08 11:40 | disposition home or self-care (01) ==
PROVIDERS: PCP Family Medicine; Referring Provider Orthopaedic Surgery Adult Reconstructive Orthopaedic Surgery; Visit Provider Orthopaedic Surgery Adult Reconstructive Orthopaedic Surgery
PROC: 0RSL04Z Reposition Right Elbow Joint with Internal Fixation Device, Open Approach (ICD-10-PCS; CPT 24685; principal; 2024-02-08 07:45)
DX: S52.031A Displaced fracture of olecranon process with intraarticular extension of right ulna, initial encounter for closed fracture (principal); G89.18 Other acute postprocedural pain; W18.30XA Fall on same level, unspecified, initial encounter; F17.210 Nicotine dependence, cigarettes, uncomplicated
CPT/HCPCS: 24685; 64450; 73070; 76000; C1713; J0295; J0690; J1100; J1885; J2250; J2405; J2704; J3010

== ENCOUNTER 2024-05-16 22:56 | Emergency (ER) | payer OTHER, MEDICAID, SELFPAY ==
[2024-05-16] VITALS (14 sets, daily range): BP systolic 108–155; BP diastolic 52–87; PULSE 84–99; RESP 12–18; TEMP 35.8; O2SAT 95–98
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
[2024-05-16 23:15] LABS: Add Manual Diff / Slide Review NO; Basophils Absolute Auto 100 /uL (0-100); Basophils Percent Auto 0.5 % (0-2); Eosinophils Absolute Auto 300 /uL (0-450); Eosinophils Percent Auto 2.3 % (2-4); Hematocrit 46.6 % (41-53); Hemoglobin 15.9 g/dL (13.5-17.5); Lymphocytes Absolute Auto 5000 /uL (1100-4500); Lymphocytes Percent Auto 35.2 % (25-40); Mean Corpuscular HGB Conc 34.1 % (30-36); Mean Corpuscular Hemoglobin 32.2 PG (26-34); Mean Corpuscular Volume 94.4 fL (80-100); Monocytes Absolute Auto 1200 /uL (0-900); Monocytes Percent Auto 8.6 % (3-14); Neutrophils Absolute Auto 7600 /uL (1500-7000); Neutrophils Percent Auto 53.4 % (50-75); Platelet Count 392 X10^3/uL (150-400); Red Blood Cell Count 4.93 X10^6/uL (4.5-5.9); Red Cell Distribution Width 13.6 % (11.6-14.8); White Blood Cell Count 14.3 X10^3/uL (4.5-11.0)
[2024-05-16 23:20] LABS: Alanine Aminotransferase 27 IU/L (<50); Albumin 4.4 g/dL (3.5-5.0); Albumin Globulin Ratio 1.5 (1.0-2.8); Alkaline Phosphatase 66 U/L (38-126); Aspartate Aminotransferase 31 IU/L (17-59); BUN Creatinine Ratio 11.4 (6-22); Bilirubin Total 0.5 mg/dL (0.2-1.3); Blood Urea Nitrogen 12 mg/dL (9-20); Calcium 9.1 mg/dL (8.4-10.2); Carbon Dioxide 19 mmol/L (22-32); Chloride 107 mmol/L (98-107); Estimated Glomerular Filt Rate > 60 mL/min (>60); Globulin 2.9 g/dL (1.7-4.1); Glucose 127 mg/dL (80-110); HEMOLYSIS < 15 (0-50); Lipase 1812 U/L (23-300); Potassium 3.6 mmol/L (3.4-5.1); Sodium 142 mmol/L (137-145); Total Protein 7.3 g/dL (6.3-8.2)
[2024-05-17] VITALS (8 sets, daily range): BP systolic 96–143; BP diastolic 55–79; PULSE 88–98; RESP 16–18; O2SAT 91–97
[2024-05-17] MEDS: MORPHINE 4 MG/ML INJ IV ×2 (00:15→00:35)
--- NOTE | 2024-05-17 00:15 | PC.NURSE ---
c-collar removed per Dr Guadarrama, explained to pt the importance of not twisting and turning on the stretcher
--- NOTE | 2024-05-17 01:30 | PC.NURSE ---
pt resting comfortably at present waiting for transport to [facility], continues without any motor or sensory deficits, pt lying supine on stretcher aao x 3
[2024-05-17] MEDS: ONDANSETRON 4 MG/2 ML INJ IV (01:51)
== END 2024-05-17 02:03 | disposition short-term general hospital (02) ==
PROVIDERS: Emergency Provider Emergency Medicine; PCP Family Medicine
DX: S32.011A Stable burst fracture of first lumbar vertebra, initial encounter for closed fracture (principal); S09.90XA Unspecified injury of head, initial encounter; S19.9XXA Unspecified injury of neck, initial encounter; R74.8 Abnormal levels of other serum enzymes; R79.89 Other specified abnormal findings of blood chemistry; V87.7XXA Person injured in collision between other specified motor vehicles (traffic), initial encounter
CPT/HCPCS: 51798; 70450; 71045; 72125; 74177; 80053; 83690; 85025; 96374; 96375; 99284; 99291; G0390; J2270; J2405; Q9967

== ENCOUNTER 2024-05-27 11:39 | Emergency (ER) | payer MEDICARE, SELFPAY ==
[2024-05-27 11:46] VITALS: BP 163/69; PULSE 139; RESP 18; TEMP 35.8; O2SAT 98; BMI 21.2
--- NOTE | 2024-05-27 12:34 | PC.NURSE ---
This RN called [facility] and they informed me that they are unable to fill his 180 10mg oxycodone tablet prescriptions as they only have 10 tablets. I called [facility] and neither had enough to fill his prescription. This RN reattempted multiple times to call [facility] pharmacy without success. PARDEEP also attempted call without request. PARDEEP also attempted to make a call.
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
--- NOTE | 2024-05-27 12:57 | PC.NURSE ---
Provider wrote a written script for 48 5mg oxycodone. Patient called [facility] pharmacy to verify that they had this medication in stock prior to leaving. Patient states They have it. Patient left department with hand written script.
== END 2024-05-27 13:00 | disposition home or self-care (01) ==
PROVIDERS: Emergency Provider Physician Assistant; PCP Family Medicine
DX: Z76.0 Encounter for issue of repeat prescription (principal); S32.018D Other fracture of first lumbar vertebra, subsequent encounter for fracture with routine healing
CPT/HCPCS: 99281

== ENCOUNTER → 2024-06-14 10:40 | Outpatient (CLI) | payer MEDICARE, MEDICAID, SELFPAY ==
--- NOTE | 2024-06-14 11:22 | DI.RAD.S_ITS ---
PROCEDURE: XR LUMBAR SPINE MIN 4V INDICATIONS: post-op back pain TECHNIQUE: 5 views of the lumbar spine were acquired, including bilateral oblique views. COMPARISON: [facility], CT, CT ABDOMEN PELVIS W CON, 05/16/2024, 23:11. FINDINGS: Bones: There is posterior fixation of thoracolumbar spine with fixation hardware present at T11 through L3 levels. No gross hardware loosening or failure. 5 nonrib-bearing vertebrae are present. There is straightening of normal lumbar lordosis. Subacute appearing compression deformity involving L1 vertebral body is again seen with up to 30 percent loss of L1 vertebral body height anteriorly. No new compression fracture. Degenerative disc disease throughout lumbar spine is seen. No suspicious bony lesions. Soft tissues: Overlying bowel gas pattern is normal. No suspicious soft tissue calcifications. Oblique images: No pars defects. IMPRESSION: Post fixation changes at thoracolumbar spine. No gross hardware loosening or failure. Stable subacute appearing compression deformity at L1 level as above. No new vertebral body compression fracture. Degenerative disc disease throughout lumbar spine. No gross pars defect seen on oblique views. Dictated by: Eduardo Carvajal M.D. on 06/14/2024 at 17:12 Approved by: Eduardo Carvajal M.D. on 06/14/2024 at 17:14
--- NOTE | 2024-06-14 11:22 | DI.RAD.S_ITS ---
PROCEDURE: XR THORACIC SPINE 2V INDICATIONS: post-op back pain TECHNIQUE: 2 views of the thoracic spine were acquired. COMPARISON: None. FINDINGS: Bones: No fractures or dislocations. Mild rightward curvature of thoracic spine centered at T7 level is seen. Fixation hardware in visualized lower thoracic spine is seen. No gross hardware loosening or failure. No suspicious bony lesions. Degenerative endplate changes are noted throughout mid to lower thoracic spine. 12 pairs of ribs are noted, and appear intact where visualized. Soft tissues: No paravertebral stripe thickening. IMPRESSION: Fixation hardware present in lower thoracic spine. No acute thoracic spine compression fracture or spondylolisthesis. Mild scoliosis as above. [id number] degenerative disc disease in mid to lower thoracic spine. Dictated by: Eduardo Carvajal M.D. on 06/14/2024 at 17:14 Approved by: Eduardo Carvajal M.D. on 06/14/2024 at 17:15
[2024-06-14 12:16] LABS: Appearance Urine UA CLEAR; Bilirubin Urine UA NEGATIVE (NEGATIVE); Color Urine UA YELLOW; Glucose Urine UA NEGATIVE (Negative); Ketones Urine UA NEGATIVE (NEGATIVE); Leukocyte Esterase Urine UA 1+ (NEGATIVE); Nitrite Urine UA NEGATIVE (Negative); Occult Blood Urine UA NEGATIVE (Negative); Protein Urine UA NEGATIVE (Negative); Specific Gravity Urine UA <=1.005 (1.000-1.035); Urobilinogen Urine UA 0.2 E.U./dL (0.2)
[2024-06-14 12:19] LABS: Urine Volume 10mL (spun)
[2024-06-14 12:21] LABS: Bacteria Urine None Seen; Culture Indicated Urine Specimen Cultured; RBC Urine None Seen (0-5/HPF); Squamous Epithelial Cell Urine None Seen (0-5/HPF); WBC Urine 1-5/HPF (0-5/HPF)
== END ==
LOC: LAB 10:45 → RAD 11:22
PROVIDERS: PCP Family Medicine; Referring Provider Family Medicine; Visit Provider Family Medicine
DX: M51.34 Other intervertebral disc degeneration, thoracic region (principal); M51.360 Other intervertebral disc degeneration, lumbar region with discogenic back pain only; R35.0 Frequency of micturition; G89.18 Other acute postprocedural pain; M54.9 Dorsalgia, unspecified; Z98.1 Arthrodesis status
CPT/HCPCS: 72070; 72110; 81001; 87086

== ENCOUNTER 2024-11-02 08:38 | Emergency (ER) | payer MEDICARE, MEDICAID, SELFPAY ==
[2024-11-02 08:48] VITALS: BP 123/93; PULSE 117; O2SAT 96
[2024-11-02 08:58] VITALS: BP 123/93; PULSE 91; RESP 20; TEMP 37; O2SAT 100; BMI 19.2
[2024-11-02 09:00] VITALS: PULSE 85; O2SAT 98
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
[2024-11-02 11:15] VITALS: BP 119/80; PULSE 95; RESP 16; O2SAT 98
--- NOTE | 2024-11-02 11:20 | PC.NURSE ---
Late entry: Provider assessed pt and cleared the patient for discharge. Urine results were okayed by the provider. Patient not in acute distress at time of discharge.
== END 2024-11-02 11:17 | disposition home or self-care (01) ==
PROVIDERS: Emergency Provider Emergency Medicine; PCP Family Medicine
DX: R33.8 Other retention of urine (principal)
CPT/HCPCS: 51798; 81003; 99282; 99283

== ENCOUNTER → 2024-11-14 06:41 | Outpatient (CLI) | payer MEDICARE, MEDICAID, SELFPAY ==
--- NOTE | 2024-11-14 06:43 | DI.CT.S_ITS ---
PROCEDURE: CT ABDOMEN PELVIS W CON INDICATIONS: abdominal wall bulge TECHNIQUE: After the administration of intravenous contrast, axial sections acquired from the lung bases to the pubic symphysis. Coronal and sagittal reformats were performed. For radiation dose reduction, the following was used: automated exposure control, adjustment of mA and/or kV according to patient size. COMPARISON: [facility], CT, CT ABDOMEN PELVIS W CON, 05/16/2024, 23:11. FINDINGS: Image quality: Diagnostic. Lower Chest: No significant findings. ABDOMEN: Liver: No solid mass. Stable scattered subcentimeter hypoattenuating lesions, too small to characterize by CT but probably small cysts. Focal fat adjacent to the falciform ligament. Gallbladder: No radiopaque gallstones or wall thickening. Biliary ducts: No biliary dilation. Pancreas: No ductal dilation. Spleen: Size is within normal limits. Adrenal Glands: No adrenal nodules. Kidneys and Ureters: No hydronephrosis. No solid mass. No complex renal cystic lesion which requires follow up. Stomach and Bowel: Normal colonic caliber, without significant wall thickening. Peritoneum: No abnormal intraperitoneal fluid. No free air. Ventral Wall: No significant ventral hernia. Abdominal Nodes: No retroperitoneal or mesenteric adenopathy by size criteria. Vessels: Aorta and inferior vena cava are normal in size. PELVIS: Pelvic Organs: Unremarkable. Bladder: No bladder wall thickening, accounting for underdistention. Pelvic Nodes: No enlarged lymph nodes. Miscellaneous: Direct and indirect right inguinal hernias containing a knuckle of small bowel wall (series 2, image 121). Small direct left inguinal hernia containing fat and a knuckle of small bowel wall (series 4, image 30). Bones: Burst fracture of the L1 vertebral body, with 8 mm endplate retropulsion. There is surgical fusion from T11 through L3. IMPRESSION: Direct and indirect right inguinal hernias containing a knuckle of small bowel wall (series 2, image 121). Small direct left inguinal hernia containing fat and a knuckle of small bowel wall (series 4, image 30). Burst fracture of the L1 vertebral body, with 8 mm endplate retropulsion. Dictated by: Klaus Deng M.D. on 11/14/2024 at 14:33 Approved by: Klaus Deng M.D. on 11/14/2024 at 14:38
[2024-11-14 07:24] LABS: Alanine Aminotransferase 34 IU/L (<50); Albumin 4.7 g/dL (3.5-5.0); Albumin Globulin Ratio 1.8 (1.0-2.8); Alkaline Phosphatase 69 U/L (38-126); Aspartate Aminotransferase 27 IU/L (17-59); BUN Creatinine Ratio 28.6 (6-22); Bilirubin Total 0.6 mg/dL (0.2-1.3); Blood Urea Nitrogen 24 mg/dL (9-20); Calcium 9.9 mg/dL (8.4-10.2); Carbon Dioxide 26 mmol/L (22-32); Chloride 106 mmol/L (98-107); Estimated Glomerular Filt Rate > 60 mL/min (>60); Globulin 2.6 g/dL (1.7-4.1); Glucose 144 mg/dL (80-110); HEMOLYSIS < 15 (0-50); Sodium 141 mmol/L (137-145); Total Protein 7.3 g/dL (6.3-8.2)
[2024-11-14 07:39] LABS: Add Manual Diff / Slide Review NO; Basophils Absolute Auto 100 /uL (0-100); Basophils Percent Auto 0.9 % (0-2); Eosinophils Absolute Auto 300 /uL (0-450); Hematocrit 43.8 % (41-53); Hemoglobin 14.9 g/dL (13.5-17.5); Lymphocytes Absolute Auto 1900 /uL (1100-4500); Lymphocytes Percent Auto 22.9 % (25-40); Mean Corpuscular HGB Conc 34.1 % (30-36); Mean Corpuscular Hemoglobin 32.2 PG (26-34); Mean Corpuscular Volume 94.4 fL (80-100); Monocytes Absolute Auto 900 /uL (0-900); Monocytes Percent Auto 10.4 % (3-14); Neutrophils Absolute Auto 5300 /uL (1500-7000); Neutrophils Percent Auto 62.8 % (50-75); Platelet Count 308 X10^3/uL (150-400); Red Blood Cell Count 4.64 X10^6/uL (4.5-5.9); Red Cell Distribution Width 14.2 % (11.6-14.8); White Blood Cell Count 8.5 X10^3/uL (4.5-11.0)
[2024-11-14 09:10] LABS: TSH w/ Reflex to FT4 3.83 uIU/mL (0.47-4.68)
[2024-11-14 09:29] LABS: Vitamin B12 655 pg/mL (239-931)
== END ==
PROVIDERS: PCP Family Medicine; Referring Provider Family Medicine; Visit Provider Family Medicine
DX: K40.20 Bilateral inguinal hernia, without obstruction or gangrene, not specified as recurrent; S32.011A Stable burst fracture of first lumbar vertebra, initial encounter for closed fracture; Q79.59 Other congenital malformations of abdominal wall; R61 Generalized hyperhidrosis; R10.30 Lower abdominal pain, unspecified; K92.1 Melena; G60.9 Hereditary and idiopathic neuropathy, unspecified
CPT/HCPCS: 36415; 74177; 80053; 82607; 84443; 85025; Q9967

== ENCOUNTER 2024-11-17 07:45 | Day surgery (SDC) | payer MEDICARE, MEDICAID, SELFPAY ==
--- NOTE | 2024-11-17 | PATH_ITS ---
[facility] Accession Number: [id number] No. of containers..03 Tissue . 01 Material submitted: . PART A: colon - TRANSVERSE COLON POLYP PART B: colon - SIGMOID COLON POLYPS PART C: rectum - RECTAL POLYP . 01 Diagnosis: Part A: TRANSVERSE COLON POLYP: Colonic mucosa with focal mucosal hyperplasia. No neoplasm identified. . Part B: SIGMOID COLON POLYPS: Hyperplastic polyps. . Part C: RECTAL POLYP: Tubulovillous adenoma. No high-grade dysplasia or malignancy identified. [facility] 11/21/20241830 Local . 01 Electronically signed: . Kristopher Johnson MD, Pathologist NPI- [id number] . 01 Gross description: . Part A: TRANSVERSE COLON POLYP: Received in formalin are 2 fragment(s) of manuel, soft tissue measuring 0.6 x 0.6 x 0.2 cm to 1.1 x 0.3 x 0.3 cm submitted entirely in 1 cassette(s) . Part B: SIGMOID COLON POLYPS: Received in formalin are multiple fragments of manuel soft tissue measuring 1.3 x 1.1 x 1.1 cm in aggregate. Specimen is sectioned and submitted in its entirety in 3 cassettes. . Part C: RECTAL POLYP: Received in formalin is 1 fragment of manuel soft tissue measuring 1.0 x 1.0 x 0.9 cm. Specimen is sectioned and submitted in its entirety in 1 cassette. /[facility] 11/21/20241830 Local . 01 Pathologist provided ICD-10: D12.8, K63.5 . 01 CPT . 381540, 908046, 670202 Specimen Comment: A courtesy copy of this report has been sent to [facility] Pathology Performed at: [address] [address], [place], [place] [id number] MD Kristopher Johnson MD Phone: [phone]
[2024-11-17 08:10] VITALS: BP 140/77; PULSE 104; RESP 14; TEMP 36.3; O2SAT 98
[2024-11-17] MEDS: LACTATED RINGERS 1,000 ML 42 ML IV (08:30)
--- NOTE | 2024-11-17 08:35 | P.HP_ITS ---
History of Present Illness History of Present Illness Date Patient Seen: 11/17/24 Time Patient Seen: 08:35 Chief complaint: Colonoscopy Narrative: 64-year-old white male presented to his primary care doctor with multiple complaints, including a few episodes of blood per rectum, dysuria, an increasingly symptomatic inguinal hernia was never had a colonoscopy before. He was able to tolerate the bowel prep without difficulty and has hernia symptoms did not increase the not have any obstructive symptoms during the bowel prep. FORMERLY [facility], [facility] Medical History Idiopathic neuropathy Chronic night sweats Bloody stool Abdominal wall anomaly Lower abdominal pain Postoperative back pain Problem related to psychosocial circumstances Alcohol abuse Insufficient intake of food and water due to self neglect Excessive cerumen in both ear canals Acne (~1977) Chicken pox (~1965) Tobacco abuse disorder Cluster headaches (~1989) Family History Mother Cancer Father No problems noted. Social History household members: none Smoking Status: Current every day smoker alcohol intake: former substance use type: marijuana Meds Home Medications and Allergies Home Medications Medication Instructions Recorded Confirmed Type sumatriptan succinate 100 mg tablet See Rx Instructions PO .COMPLEX #7 12/17/23 11/10/24 Rx tabs methocarbamol 500 mg tablet 500 mg PO TID #90 tabs 05/31/24 11/10/24 Rx oxycodone 10 mg tablet 10 mg PO Q4H PRN pain #132 tabs 05/31/24 11/10/24 Rx nitrofurantoin macrocrystal 100 mg 100 mg PO BID #10 caps 06/07/24 11/10/24 Rx capsule Allergies Allergy/AdvReac Type Severity Reaction Status Date / Time No Known Drug Allergies Allergy Verified 11/17/24 08:05 Review of Systems Review of Systems ROS: Yes All systems reviewed with the patient and are negative except as otherwise documented Exam Vital Signs (past 8 hours): - 11/17/24 08:10 Temperature 97.3 F L Pulse Rate 104 H Respiratory Rate 14 Blood Pressure 140/77 Pulse Oximetry 98 Oxygen Delivery Method Room Air Oxygen Delivery Method Room Air Narrative Exam Narrative: Gen: NAD, sitting comfortably in bed, appears well HEENT: Sclera are anicteric, head is normocephalic and atraumatic, trachea is midline. CV: RRR, no JVD Resp: clear to auscultation bilaterally, equal chest wall movement bilaterally Abd: soft, nontender, normoactive bowel sounds. Reducible bilateral inguinal hernias. Ext: no edema, full range of motion Neuro: Cranial nerves II-XII grossly intact, no focal deficits Skin: No erythema or ecchymosis Assessment & Plan Assessment and plan (1) Bloody stool: Status: Acute (2) Bilateral inguinal hernia: Status: Acute Assessment & Plan narrative: Patient presents for colonoscopy Risks, benefits, alternatives to colonoscopy explained, including but not limited to bowel perforation or other serious complication requiring surgery at less than 1 in 5000 colonoscopies, abdominal pain, cramping or bleeding and less than 1% of colonoscopies, and the chances that we find a diagnosis that would require further intervention of about 2%. Patient agrees to proceed. Recommend patient stop smoking for 2 weeks minimum prior to consideration of inguinal hernia repairs. Time-Based Coding :: [TOTAL MINUTES] spent with patient and on the chart (including review of chart, obtaining history, exam, reviewing outside data, placing orders, documenting exam and treatment plan, and counseling patient) on [DATE]. PROFEE Lapel Padder Document charge(s): No
--- NOTE | 2024-11-17 09:18 | PM.OP.COLON ---
Operative Date/Time/Diagnoses Date of procedure: 11/17/24 Time of procedure: 09:18 Pre-op diagnosis: Blood per rectum Post-op diagnosis: other (Multiple large polyps) Procedure & Clinicians Study performed: Colonoscopy with hot snare polypectomy multiple polyps, transverse colon polyp, sigmoid colon polyps x5, rectal polyps x2 Same procedure as scheduled: Yes Indications: Blood per rectum Surgeon: Tu Rodriguez Procedure Notes SCOAP/Timeout: Performed Procedure in detail: Time-out was performed. Mac was induced. Patient was placed in left lateral decubitus position. The perineum was inspected without any gross abnormality. Lubricated pediatric colonoscope was inserted and advanced to the cecum. The terminal ileum was intubated. The colonoscope was withdrawn slowly inspecting the circumference of the colon. Multiple polyps were noted, including at least 2 polyps greater than 10 mm in size. All polyps were removed completely with hot snare polypectomy and retrieved. Polyps were noted in the transverse colon, sigmoid colon and rectum. The 2 polyps that were greater than 10 mm in size were noted in the rectum and distal sigmoid colon. Very small polyps may have been missed, prep quality was adequate. Retroflexed view of the rectum showed small, non prolapsed nonbleeding internal hemorrhoids. The scope was withdrawn the patient was taken to PACU in good condition. Scope withdrawal time: 24 Findings: internal hemorrhoids and polyp(s) Specimen(s): other (1 transverse colon polyp 2. Sigmoid colon polyps x5 3. Rectal polyps x 2) Complications: none Impression: Multiple polyps Post-procedure Recommendations: Colonoscopy in 3 years Plan for aftercare: 1. Abstain from smoking and nicotine for at least 2 weeks prior to calling to schedule inguinal hernia repairs 2. Alcohol contributes to polyp formation as well as colorectal cancer formation Follow up: weeks (2) Disposition: PACU
[2024-11-17 09:24] VITALS: BP 105/67; PULSE 93; RESP 16; TEMP 36.6; O2SAT 98
[2024-11-17 09:29] VITALS: BP 105/73; PULSE 87; RESP 61; O2SAT 99
[2024-11-17 09:34] VITALS: BP 112/61; PULSE 84; RESP 16; O2SAT 97
[2024-11-17 09:39] VITALS: BP 110/74; PULSE 86; RESP 16; TEMP 36.6; O2SAT 96
[2024-11-17 09:45] VITALS: BP 115/67; PULSE 84; RESP 16; TEMP 36.6; O2SAT 95
== END 2024-11-17 10:48 | disposition home or self-care (01) ==
PROVIDERS: PCP Family Medicine; Referring Provider Surgery; Visit Provider Surgery
PROC: 0DJD8ZZ Inspection of Lower Intestinal Tract, Via Natural or Artificial Opening Endoscopic (ICD-10-PCS; CPT 45378; principal; 2024-11-17 09:00)
DX: K62.5 Hemorrhage of anus and rectum (principal); F17.210 Nicotine dependence, cigarettes, uncomplicated; K64.8 Other hemorrhoids; K63.5 Polyp of colon; D12.8 Benign neoplasm of rectum
CPT/HCPCS: 45385; J2704

== ENCOUNTER 2024-12-11 12:03 | Day surgery (SDC) | payer MEDICARE, MEDICAID, SELFPAY ==
[2024-12-05 14:39] VITALS: BMI 22.3
[2024-12-11] MEDS: LACTATED RINGERS 1,000 ML 42 ML IV (12:26)
[2024-12-11] MEDS: ACETAMINOPHEN 325 MG TABLET 975 MG PO (12:27)
[2024-12-11 12:34] VITALS: BP 125/85; PULSE 111; RESP 24; TEMP 36.6; O2SAT 97; BMI 22.3
--- NOTE | 2024-12-11 12:52 | PM.PREOP ---
Pre-operative Note COVID-19 COVID-19 status: Not tested Interval Note History & Physical reviewed/Exam performed by Physician: Yes Changes to H&P: No ASA Class (for procedural sedation): III
--- NOTE | 2024-12-11 12:57 | SUR.PREOP ---
Per Volunteer, patient states that he does not want to be wheeled out after surgery. On patient's previous visit, patient was unable to find a ride home. Patient states that a friend named Lorri Arreola was taking him home and staying with him, but when the nursing staff called the responsible democrat at [phone], wrong number encountered. Patient states that he doesn't have another number for Lorri.
--- NOTE | 2024-12-11 13:20 | SUR.PREOP ---
Addendum: patient unable to secure a ride home after surgery and nursing staff unable to verify validity of ride. Notified Surgeon, anesthesiologist and assistant sales director and OR charge of situation. After discussion among team, decision was made to cancel surgery since elective in nature due to inability to acquire safe ride home. Explained situation to patient and issues of safety and liability. Patient angry with staff. IV removed and patient ambulatory to waiting room. Advised patient to reschedule surgery when a responsible alliance party could be obtained for surgery. All belongings returned to patient.
== END 2024-12-11 12:05 | disposition home or self-care (01) ==
LOC: OR 12:04
PROVIDERS: PCP Family Medicine; Referring Provider Surgery; Visit Provider Surgery
DX: K40.90 Unilateral inguinal hernia, without obstruction or gangrene, not specified as recurrent (principal); Z53.09 Procedure and treatment not carried out because of other contraindication
CPT/HCPCS: 49505; J1100; J2405; J2704; J3010